=== PATIENT | female | born 2000 | race Hispanic/Latino ===

== ENCOUNTER 2024-03-02 14:57 | Emergency (ER) | payer MEDICAID ==
[2024-03-02 16:16] LABS: #Basophils 0.04 10x3/uL (0.0-0.2); #Eosinphils 0.27 10x3/uL (0.0-0.5); #Neutrophils 5.31 10x3/uL (1.5-8.4); %Basophils 0.5 % (0.0-2.0); %Eosinophils 3.6 % (0.0-6.0); %Lymphocytes 16.8 % (18.0-47.0); %Monocytes 6.8 % (0.0-10.0); %Neutrophils 71.8 % (40.0-75.0); Hematocrit 42.8 % (34.9-44.5); Hemoglobin 15.4 g/dL (12.0-15.5); Mean Corpuscular Hemoglobin 30.9 pg (27.0-33.0); Mean Corpuscular Volume 85.8 fL (81.6-98.3); Mean Platelet Volume 11.6 fL (7.4-10.4); Platelet Count 212 10x3/uL (150-450); RBC Distribution Width 12.6 % (11.5-14.5); Red Blood Cell (RBC) Count 4.99 10x6/uL (3.90-5.03); White Blood Cell (WBC) Count 7.4 10x3/uL (3.5-10.5)
[2024-03-02 16:36] LABS: Anion Gap 12 mmol/L (10-20); BUN (Urea Nitrogen) 8 mg/dL (7.0-18.7); Calc. Creatinine Clearance 0 mL/min (70-130); Calcium 8.5 mg/dL (7.8-10.44); Carbon Dioxide 22 mmol/L (22-29); Chloride 108 mmol/L (98-107); Estimated GFR 133; Glucose 102 mg/dL (70-105); Potassium 3.2 mmol/L (3.5-5.1); Sodium 139 mmol/L (136-145)
[2024-03-02 16:39] LABS: Troponin I Less than 0.010 ng/mL (< 0.028)
[2024-03-02 16:41] LABS: Bilirubin Neg (Negative); Blood, Urine Negative (Negative); Clarity Slightly Cloudy (Clear); Glucose, Urine (Dipstick) Normal (Negative); Ketone, Urine 5 mg/dL (Negative); Leukocyte 25 (Negative); Nitrite Negative (Negative); Protein, Urine (Dipstick) 30 mg/dl (Neg-Trace); Specific Gravity, Urine 1.015 (1.005-1.030)
[2024-03-02 16:56] LABS: Bacteria/HPF 2+ HPF (None Seen); CAUTI Indications for Culture Pregnancy; Mucous/LPF 2+ LPF (<2+); RBC/HPF 0-3 HPF (0-3)
[2024-03-02 16:58] LABS: Urine Culture Reflex Yes Yes
[2024-03-02] MEDS ORDERED: Potassium Chloride 20 MEQ TAB ONE (17:27)
== END 2024-03-02 18:28 | disposition home or self-care (01) ==
LOC: CSHERS 14:57
DX: O99.281 Endocrine, nutritional and metabolic diseases complicating pregnancy, first trimester (principal); E87.6 Hypokalemia; O99.891 Other specified diseases and conditions complicating pregnancy; R82.71 Bacteriuria; O99.331 Smoking (tobacco) complicating pregnancy, first trimester; F17.210 Nicotine dependence, cigarettes, uncomplicated; Z3A.01 Less than 8 weeks gestation of pregnancy
CPT/HCPCS: 36415; 76856; 80048; 81001; 84484; 84702; 85025; 86900; 86901; 87086; 93005